=== PATIENT | female | born 1995 | race Caucasian/White ===

== ENCOUNTER 2022-11-17 06:11 | Day surgery (SDC) | payer OTHER ==
[2022-11-15 12:59] VITALS: BMI 16.9
[2022-11-17 08:06] LABS: Hemoglobin 13.9 g/dL (12.0-16.0)
[2022-11-17 08:07] LABS: BHCG - Serum Negative (NEGATIVE); Pregs Control Background? CLEAR/WHITE (CLR/WHITE); Pregs Control Bar Appear? YES (CONTROL BAR)
[2022-11-17] MEDS ORDERED: Midazolam HCl 2 mg/2 ml Vial ONE (09:10)
[2022-11-17] MEDS ORDERED: Meperidine HCl/PF 25 MG/ML VIAL ONE (09:30)
[2022-11-17] MEDS ORDERED: fentaNYL PF 100 MCG/2 ML SYRINGE ONE (09:30)
[2022-11-17] MEDS ORDERED: Famotidine/PF 20 mg/2ml Vial ONE (09:30)
[2022-11-17] MEDS ORDERED: Ondansetron PF 4 MG/2 ML Vial ONE (09:38)
[2022-11-17] MEDS ORDERED: Metoclopramide HCl 10 MG/2 ML VIAL ONE (09:38)
[2022-11-17] MEDS ORDERED: PROPOFOL 200 MG/20 ML VIAL ONE (09:38)
[2022-11-17] MEDS ORDERED: Lidocaine 1% PF 5 ML VIAL ONE (09:38)
[2022-11-17] MEDS ORDERED: methylPREDNISolone Acetate 40 mg/ml Vial ONE (09:47)
[2022-11-17] MEDS ORDERED: Fentanyl 100 MCG/2 ML VIAL ONE (10:33)
[2022-11-17] MEDS ORDERED: Hydrocodone-Acetamin 15 ML UDCUP ONE (11:37)
== END 2022-11-17 12:23 | disposition home or self-care (01) ==
LOC: SDC 06:11
PROVIDERS: ATTEND Otolaryngology Plastic Surgery within the Head & Neck
PROC: 0CTQXZZ Resection of Adenoids, External Approach (ICD-10-PCS; principal; 2022-11-17)
PROC: 0CTPXZZ Resection of Tonsils, External Approach (ICD-10-PCS; principal; 2022-11-17)
DX: J35.03 Chronic tonsillitis and adenoiditis (principal); G47.30 Sleep apnea, unspecified; F17.200 Nicotine dependence, unspecified, uncomplicated; Z79.3 Long term (current) use of hormonal contraceptives; Z79.891 Long term (current) use of opiate analgesic; Z88.0 Allergy status to penicillin; Z88.5 Allergy status to narcotic agent; Z88.6 Allergy status to analgesic agent; Z91.040 Latex allergy status
CPT/HCPCS: 84703; 85014; 85018; 88304; J1030; J2175; J2250; J2405; J2704; J2765; J3010; S0028